=== PATIENT | female | born 1940 | race African-American/Black ===

== ENCOUNTER 2017-08-12 12:01 | Emergency (ER) | payer MEDICARE, OTHER ==
[~2017-08-12] VITALS: Ht 177.8 cm; Wt 110.2 kg
[~2017-08-12 12:01] MED LIST: AMLODIPINE BESY10 MG PO; ASPIRIN EC81 MG PO; ATENOLOL25 MG ORAL; BACTRIM-DS1 EA ORAL; DYAZIDE 37.5-21 EACH PO; HYDROCHLOROTHIA25 MG ORAL; OYSCO 500+D TA1 EAC1 PO; SIMVASTATIN40 MG PO; SYNTHROID150 MCG PO
[2017-08-12] MEDS ORDERED: CARVEDILOL3.125 MG ORAL (12:17)
[2017-08-12] MEDS ORDERED: CHLORTHALIDONE25 MG ORAL (12:17)
[2017-08-12] MEDS ORDERED: ATORVASTATIN CA20 MG ORAL (12:17)
[2017-08-12] MEDS ORDERED: AMLODIPINE BESY10 MG ORAL (12:17)
[2017-08-12] MEDS ORDERED: VITAMIN D400 INTLU ORAL (12:17)
[2017-08-12] MEDS ORDERED: OYSCO 500+D TA1 EAC1 PO (12:17)
[2017-08-12] MEDS ORDERED: LEVOTHYROXINE150 MCG ORAL (12:17)
[2017-08-12 12:38] LABS: APPEARANCE,URINE CLEAR; BILIRUBIN, URINE NEGATIVE (NEGATIVE); GLUCOSE, URINE (UA) NEGATIVE (NEGATIVE); KETONES,URINE NEGATIVE (NEGATIVE); LEUKOCYTE ESTERASE ,URINE 1+ (NEGATIVE); NITRITE,URINE NEGATIVE (NEGATIVE); PH,URINE 7 (4.5-8.0); PROTEIN,URINE 1+ (NEGATIVE); UROBILINOGEN,URINE NORMAL MG/DL (0.0-1.0)
[2017-08-12 12:39] VITALS: BP 184/89
[2017-08-12 12:39] LABS: COLOR,URINE YELLOW
--- NOTE | 2017-08-12 12:45 | Emergency Room Report ---
History of Present Illness General Chief Complaint: Female Urogenital Problems Source: Patient Present Illness HPI 77-year-old female, presenting with many months of urinary frequency. Denies any dysuria. Denies any hematuria. Patient states that she has seen her doctor many times, but did perform tasks, but states that she is okay. Patient denies any fever chills abdominal pain. Allergies: Coded Allergies: No Known Allergies (Unverified , 07/06/12) Patient History Past Medical History: see triage record Past Surgical History: none Pertinent Family History: none Last Menstrual Period: Post Reviewed Nursing Documentation: PMH: Agreed, PSxH: Agreed Nursing Documentation-PMH Hx Hypertension: Yes Hx Pacemaker: No Hx Asthma: No Hx COPD: No Hx Diabetes: No - bordeline Hx Cancer: No Hx Dialysis: No Hx Neurological Problems: No Hx Cerebrovascular Accident: No Hx Seizures: No Hx Head Trauma: Yes - Hx Dizziness: Yes - rasing up suddenly Review of Systems All Other Systems: negative except mentioned in HPI Physical Exam Vital Signs Date Time Temp Pulse Resp B/P (MAP) Pulse Ox O2 Delivery O2 Flow Rate FiO2 08/12/17 12:07 98.7 78 17 184/89 98 Room Air 98.8 Sp02 EP Interpretation: reviewed, normal General Appearance: normal inspection, well appearing, no apparent distress, alert, GCS 15, non-toxic Head: normocephalic, atraumatic Eyes: bilateral eye normal inspection, bilateral eye PERRL, bilateral eye EOMI ENT: normal ENT inspection, normal pharynx, normal voice, moist mucus membranes Neck: normal inspection, full range of motion, supple Respiratory: normal inspection, lungs clear, normal breath sounds, no respiratory distress, no retraction, no wheezing, speaking full sentences, chest symmetrical Cardiovascular #1: normal inspection, regular rate, rhythm, no edema, normal capillary refill Cardiovascular #2: 2+ radial (R), 2+ radial (L) Gastrointestinal: normal inspection, non tender, soft, non-distended, no guarding Musculoskeletal: normal inspection, back normal, normal range of motion, non- tender Neurologic: normal inspection, alert, oriented x3, responsive, motor strength/ tone normal, sensory intact, normal gait, speech normal Psychiatric: normal inspection, judgement/insight normal, memory normal Skin: normal inspection, normal color, no rash, warm/dry, well hydrated, normal turgor Medical Decision Making Diagnostic Impression: Primary Impression: Urinary frequency ER Course 77-year-old female with urinary frequency DDX: Rule out UTI versus diabetes Plan: Accu-Chek, UA ER course: Patient has remained stable during ED stay. UA is negative for infection accucheck normal Disposition: Patient is to be discharged to home. Patient is instructed to follow up with their primary care doctor within 5 days. Please note that this Emergency Department Report was dictated using [employer] art technology software, occasionally this can lead to erroneous entry secondary to interpretation by the dictation equipment Laboratory Tests Test 08/12/17 12:15 Urine Color Yellow Urine Appearance Clear Urine pH 7 (4.5-8.0) Urine Specific [place] 1.005 (1.005-1.035) Urine Protein 1+ (NEGATIVE) H Urine Glucose (UA) Negative (NEGATIVE) Urine Ketones Negative (NEGATIVE) Urine Occult Blood Negative (NEGATIVE) Urine Nitrite Negative (NEGATIVE) Urine Bilirubin Negative (NEGATIVE) Urine Urobilinogen Normal MG/DL (0.0-1.0) Urine Leukocyte Esterase 1+ (NEGATIVE) H Urine RBC 0-2 /HPF (0 - 2) Urine WBC 2-4 /HPF (0 - 2) Urine Squamous Epithelial Cells Few /LPF (NONE/OCC) Urine Bacteria Occasional /HPF (NONE) Last Vital Signs Date Time Temp Pulse Resp B/P (MAP) Pulse Ox O2 Delivery O2 Flow Rate FiO2 08/12/17 12:39 98.8 17 184/89 98 Room Air 98.8 08/12/17 12:07 78 Disposition: HOME, SELF-CARE Condition: Improved Patient Instructions: Urinary Frequency Anabel Marcos M.D. Aug 12, 2017 12:45
[2017-08-12 13:23] VITALS: BP 184/89
== END 2017-08-12 13:24 | disposition home or self-care (01) ==
LOC: EMR 12:50
DX: R35.0 Frequency of micturition (principal); I10 Essential (primary) hypertension
CPT/HCPCS: 81003; 99282

== ENCOUNTER 2018-02-13 10:34 | Inpatient (IN) | payer MEDICARE, OTHER ==
[~2018-02-13] VITALS: Ht 162.6 cm; Wt 126.1 kg
[~2018-02-13 10:34] MED LIST changes: +AMLODIPINE BESY10 MG ORAL; +ATORVASTATIN CA20 MG ORAL; +CARVEDILOL3.125 MG ORAL; +CHLORTHALIDONE25 MG ORAL; +LEVOTHYROXINE150 MCG ORAL; +VITAMIN D400 INTLU ORAL
[2018-02-13] MEDS ORDERED: ASPIR 8181 MG ORAL (10:56)
[2018-02-13] MEDS ORDERED: OMEGA 3 FISH O1 EAC1 PO (10:56)
[2018-02-13] MEDS ORDERED: Sodium Chloride 500ML 500 ML IV ONE (11:05)
[2018-02-13 11:11] VITALS: BP 156/75
--- NOTE | 2018-02-13 11:30 | Emergency Room Report ---
History of Present Illness General Chief Complaint: Dizziness Source: Patient Present Illness HPI Patient presents with complaints of severe dizziness reports that several days ago she started having episodes when she was laying down in bed More recently became extremely nauseated with this episode vomited Patient feels debilitated Denies any focal weakness however she did have some right lower back pain associated before the symptoms as well Denies any dysuria or frequency denies any fevers Denies any chest pain or short of breath Allergies: Coded Allergies: No Known Allergies (Unverified , 07/06/12) Patient History Past Medical History: see triage record Pertinent Family History: none Reviewed Nursing Documentation: PMH: Agreed; PSxH: Agreed Nursing Documentation-PMH Past Medical History: No History, Except For Hx Hypertension: Yes Hx Pacemaker: No Hx Asthma: No Hx COPD: No Hx Diabetes: Yes - bordeline Hx Cancer: No Hx Dialysis: No History Of Psychiatric Problem: No Hx Neurological Problems: No Hx Cerebrovascular Accident: No Hx Seizures: No Hx Head Trauma: Yes - Hx Dizziness: Yes - rasing up suddenly Review of Systems All Other Systems: negative except mentioned in HPI Physical Exam Vital Signs Date Time Temp Pulse Resp B/P (MAP) Pulse Ox O2 Delivery O2 Flow Rate FiO2 02/13/18 10:50 97.9 61 14 166/92 96 Room Air 97.9 Sp02 EP Interpretation: reviewed, normal General Appearance: mild distress - Appears mildly nauseated Head: normocephalic, atraumatic Eyes: bilateral eye PERRL, bilateral eye EOMI ENT: hearing grossly normal, normal pharynx, TMs + canals normal, uvula midline Neck: full range of motion, supple, no meningismus, no bony tend, other - Appearance of previous clavicle surgery Respiratory: lungs clear, normal breath sounds, no rhonchi, no respiratory distress, no retraction, no accessory muscle use Cardiovascular #1: normal peripheral pulses, regular rate, rhythm, no edema, no gallop, no JVD, no murmur Gastrointestinal: normal bowel sounds, non tender, soft, no mass, no organomegaly, non-distended, no guarding, no hernia, no pulsatile mass, no rebound Genitourinary: no CVA tenderness Musculoskeletal: other - No obvious focal weakness, uncomfortable on right posterior superior iliac crest Neurologic: oriented x3, responsive, feed mixer III-XII nml as tested, motor strength/ tone normal, sensory intact Psychiatric: mood/affect normal Skin: normal color, no rash, warm/dry, palpation normal Lymphatic: normal inspection, no adenopathy Medical Decision Making Diagnostic Impression: Primary Impression: Dizziness Additional Impressions: Back pain Weakness ER Course Patient is a fairly complex patient with multiple differential to consideration including but not limited to cardiac cardiopulmonary and vascular emergencies Patient's initial workup and evaluation was negative for any acute process Given the patient's dizziness CVA needs to be considered Admission is obtained for further care Also imaging inpatient for lower back is also obtained no obvious acute pathology patient stable for further inpatient care Labs Test 02/14/18 05:30 02/15/18 05:05 02/16/18 05:40 White Blood Count 5.6 K/UL (4.8-10.8) 5.4 K/UL (4.8-10.8) Red Blood Count 6.05 M/UL (4.20-5.40) 5.97 M/UL (4.20-5.40) Hemoglobin 13.6 G/DL (12.0-16.0) 13.5 G/DL (12.0-16.0) Hematocrit 43.3 % (37.0-47.0) 42.6 % (37.0-47.0) Mean Corpuscular Volume 72 FL (80-99) 71 FL (80-99) Mean Corpuscular Hemoglobin 22.4 PG (27.0-31.0) 22.7 PG (27.0-31.0) Mean Corpuscular Hemoglobin Concent 31.3 G/DL (32.0-36.0) 31.8 G/DL (32.0-36.0) Red Cell Distribution Width 13.2 % (11.6-14.8) 13.0 % (11.6-14.8) Platelet Count 227 K/UL (150-450) 215 K/UL (150-450) Mean Platelet Volume 8.6 FL (6.5-10.1) 7.9 FL (6.5-10.1) Neutrophils (%) (Auto) 66.0 % (45.0-75.0) 65.6 % (45.0-75.0) Lymphocytes (%) (Auto) 19.4 % (20.0-45.0) 19.9 % (20.0-45.0) Monocytes (%) (Auto) 10.3 % (1.0-10.0) 10.5 % (1.0-10.0) Eosinophils (%) (Auto) 3.3 % (0.0-3.0) 3.3 % (0.0-3.0) Basophils (%) (Auto) 1.0 % (0.0-2.0) 0.7 % (0.0-2.0) Sodium Level 144 MMOL/L (136-145) 139 MMOL/L (136-145) Potassium Level 3.7 MMOL/L (3.5-5.1) 3.3 MMOL/L (3.5-5.1) Chloride Level 106 MMOL/L (98-107) 105 MMOL/L (98-107) Carbon Dioxide Level 29 MMOL/L (21-32) 29 MMOL/L (21-32) Anion Gap 9 mmol/L (5-15) 5 mmol/L (5-15) Blood Urea Nitrogen 18 mg/dL (7-18) 17 mg/dL (7-18) Creatinine 0.8 MG/DL (0.55-1.30) 0.7 MG/DL (0.55-1.30) Estimat Glomerular Filtration Rate mL/min (>60) mL/min (>60) Glucose Level 95 MG/DL (74-106) 113 MG/DL (74-106) Calcium Level 8.7 MG/DL (8.5-10.1) 8.9 MG/DL (8.5-10.1) Troponin I 0.001 ng/mL (0.000-0.056) Triglycerides Level 59 MG/DL (30-150) Cholesterol Level 160 MG/DL (< 200) LDL Cholesterol 82 mg/dL (<100) HDL Cholesterol 71 MG/DL (40-60) Cholesterol/HDL Ratio 2.3 (3.3-4.4) Thyroid Stimulating Hormone (TSH) 1.646 uiU/mL (0.358-3.740) Rhythm Strip Diag. 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
[2018-02-13 11:36] LABS: APPEARANCE,URINE CLEAR; BASOPHILS % (AUTO) 1.1 % (0.0-2.0); BILIRUBIN, URINE NEGATIVE (NEGATIVE); EOSINOPHILS % (AUTO) 1.8 % (0.0-3.0); GLUCOSE, URINE (UA) NEGATIVE (NEGATIVE); HEMATOCRIT 47.1 % (37.0-47.0); HEMOGLOBIN 14.6 G/DL (12.0-16.0); KETONES,URINE NEGATIVE (NEGATIVE); LEUKOCYTE ESTERASE ,URINE 2+ (NEGATIVE); LYMPHOCYTES % (AUTO) 20.2 % (20.0-45.0); MEAN CORPUSCULAR VOLUME 71 FL (80-99); MONOCYTES % (AUTO) 8.4 % (1.0-10.0); NEUTROPHILS % (AUTO) 68.6 % (45.0-75.0); NITRITE,URINE NEGATIVE (NEGATIVE); PH,URINE 6 (4.5-8.0); PLATELET COUNT 238 K/UL (150-450); PROTEIN,URINE 1+ (NEGATIVE); RED CELL DISTRIBUTION WIDTH 13.4 % (11.6-14.8); UROBILINOGEN,URINE NORMAL MG/DL (0.0-1.0); WHITE BLOOD COUNT 6.3 K/UL (4.8-10.8)
[2018-02-13 11:40] LABS: COLOR,URINE YELLOW
[2018-02-13 11:44] LABS: ANION GAP 7 mmol/L (5-15); BLOOD UREA NITROGEN 13 mg/dL (7-18); CARBON DIOXIDE 27 MMOL/L (21-32); CHLORIDE 105 MMOL/L (98-107); CREATININE 0.7 MG/DL (0.55-1.30); POTASSIUM 3.6 MMOL/L (3.5-5.1); SODIUM 139 MMOL/L (136-145)
--- NOTE | 2018-02-13 11:55 | Diagnostic Imaging Report ---
Indication: Vertigo nausea Technique: Contiguous 5 mm thick transaxial imaging of the head obtained in a Siemens Sensation [address] scanner. Soft tissue and bone windows generated. Automatic Exposure Control was utilized. Total Dose length Product (DLP): 1372.[address] Dose Index Volume (CTDIvol): 70.38 mGy Comparison: none Findings: Mild, nonspecific, white matter hypoattenuation is noted throughout the brain most likely secondary to chronic small vessel disease given the patient's age. There is no midline shift, edema, acute hemorrhage, mass effect, or abnormal extra-axial fluid collections. Bones and extra osseous soft tissues are unremarkable. Impression: No acute intracranial bleed, mass effect or edema. Nonspecific white matter hypoattenuation most likely due to chronic small vessel disease. The CT scanner at [facility] is accredited by the [employer] and the scans are performed using dose optimization techniques as appropriate to a performed exam including Automatic Exposure control.
[2018-02-13 11:57] LABS: ALANINE AMINOTRANSFERASE 24 U/L (12-78); ALBUMIN 3.6 G/DL (3.4-5.0); ALBUMIN/GLOBULIN RATIO 0.9 (1.0-2.7); ALKALINE PHOSPHATASE 115 U/L (46-116); ASPARTATE AMINO TRANSFERASE 31 U/L (15-37); BILIRUBIN,TOTAL 0.6 MG/DL (0.2-1.0); CKMB 1.1 NG/ML (0.0-3.6); CREATINE KINASE 177 U/L (26-308)
--- NOTE | 2018-02-13 12:14 | Diagnostic Imaging Report ---
Indication: Chest pain Comparison: 06/10/2016 A single view chest radiograph was obtained. Findings: No definite infiltrate or pulmonary vascular congestion identified. The heart is enlarged. The aorta is mildly enlarged consistent with atherosclerotic vascular disease. The bones are osteopenic. Impression: No acute disease
[2018-02-13 12:35] VITALS: BP 142/74
[2018-02-13] MEDS ORDERED: Meclizine 25mg tab ORAL ONE (13:30)
[2018-02-13 15:45] VITALS: BP 132/84
--- NOTE | 2018-02-13 16:30 | Diagnostic Imaging Report ---
Indication: Back pain Technique: MRI examination of the lumbar spine was performed in a 1.5 [place] magnet. Sequences obtained include sagittal and axial T1 and T2 fast spin echo, and sagittal STIR. Comparison: none Findings: Bone marrow signal normal. There is no fracture or evidence of trauma involving the lumbar spine. Disc desiccation and narrowing of the intervertebral discs noted multiple levels. This is associated with moderate hypertrophic endplate osteophyte formation and moderate facet arthropathy at multiple levels. The effects of these changes in the spinal canal and foraminal be discussed on a level by level basis. The visualized part of the distal spinal cord is normal. Conus medullaris is seen at about the level of L1 which is normal position. L1-2: Moderate facet arthropathy demonstrated. Narrowing of the central canal lateral recess demonstrated. Mild to moderate bilateral foraminal stenosis. L2-3: Moderate to severe central spinal stenosis demonstrated with narrowing of the lateral recess. Moderate facet arthropathy and ligamentum flavum redundancy and the moderate bilateral foraminal stenosis demonstrated. L3-4: Central spinal stenosis mild in degree, lateral recess stenosis demonstrated. Moderate to severe bilateral foraminal stenosis demonstrated. L4-5: Narrowing of the lateral aspect of the canal lateral recess stenosis demonstrated due to facet arthropathy. Severe bilateral foraminal stenosis is present. The central AP diameter of the canal is normal. 5 S1: Central AP diameter of the canal is normal. There is narrowing of the lateral aspect of the canal and lateral recess stenosis. There is severe bilateral foraminal stenosis due to facet arthropathy. 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
--- NOTE | 2018-02-13 16:48 | Diagnostic Imaging Report ---
Indication: Hip and pelvis pain Technique: MRI examination of the pelvis was performed in a 1.5 [place] magnet. Sequences obtained include multiplanar T1 and T2 fast spin echo, and STIR. Comparison: none Findings: Bone marrow signal is normal. There is no evidence of bone marrow edema or fracture involving the bony pelvis including the sacrum and hips. The hip joints and the more specific evaluation of the hips not performed on this examination which is done in a generalized fashion of the pelvis. No abnormal fluid collections identified. The musculotendinous structures appear grossly unremarkable about the pelvis and both hips. The uterus is noted. There is no free fluid within the pelvis identified. Degenerative changes of the lower lumbar spine are noted. Please refer to the MR lumbar spine report for more information. IMPRESSION: No acute findings appreciated
[2018-02-13 20:00] VITALS: BP 171/71
[2018-02-13] MEDS ORDERED: Zolpidem 5mg tab ORAL PRN (20:15)
--- NOTE | 2018-02-13 22:30 | History and Physical Report ---
DATE OF ADMISSION: 02/13/2018 CHIEF COMPLAINT: The patient is a 77-year-old female, who presents with chief complaint of dizziness. HISTORY OF PRESENT ILLNESS: Began one week prior to admission. The patient states she began to experience dizziness. The patient states it is worse when she is lying flat or changes her head position to the left. The patient is unable to sleep lying flat. The patient states "the room is spinning". The patient presented to [place] emergency room. The patient is admitted with vertigo to rule out acute cerebrovascular accident versus benign positional vertigo. PAST MEDICAL HISTORY: Significant for: 1. Hypertension. 2. Hypothyroidism. PAST SURGICAL HISTORY: The patient denies. CURRENT MEDICATIONS: 1. Amlodipine 10 mg p.o. daily. 2. Aspirin 81 mg p.o. daily. 3. Atorvastatin 20 mg p.o. daily. 4. Carvedilol 3.125 mg p.o. twice daily. 5. Chlorthalidone 25 mg p.o. daily. 6. Levoxyl 0.15 mg p.o. daily. ALLERGIES: No known drug allergies. SOCIAL HISTORY: The patient is and lives alone. The patient denies tobacco or alcohol use. REVIEW OF SYSTEMS: CONSTITUTIONAL: The patient denies weight loss or weight gain. The patient denies fevers or chills. HEENT: The patient denies ear or throat pain. The patient denies headache. CARDIOVASCULAR: The patient denies palpitations or chest pain. CHEST: The patient denies wheezes or shortness of breath. ABDOMEN: The patient denies nausea, vomiting, diarrhea, or constipation. GENITOURINARY: The patient denies dysuria or increased frequency of urination. NEUROMUSCULAR: The patient complaints of vertigo as above. The patient denies seizures or generalized weakness. PHYSICAL EXAMINATION: GENERAL: The patient is a well-developed and well-nourished female, in no apparent distress. VITAL SIGNS: Temperature 98.0 degrees, respirations 18, pulse 84, and blood pressure 142/74. HEENT: Eyes, pupils equal and responsive to light and accommodation. Extraocular movements are intact. NECK: Supple without lymphadenopathy. CHEST: Lungs are clear to auscultation bilaterally without wheezes or rales. CARDIOVASCULAR: Regular rate. S1 and S2 are normal without murmurs, rubs, or gallops. ABDOMEN: Soft, nontender, and nondistended. Positive bowel sounds. No evidence of hepatosplenomegaly. Currently, no rebound or guarding noted. EXTREMITIES: Negative for clubbing, cyanosis, or edema. RECTAL: Refused. GENITAL: Refused. NEUROLOGIC: Cranial nerves II through XII are grossly intact without focal deficits. Motor strength is 5/5 bilaterally. Deep tendon reflexes are 2+ plantar. LABORATORY AND DIAGNOSTIC DATA: WBC 6.3, hemoglobin 14.6, hematocrit 47.1, and platelets 238,000. Sodium 139, potassium 3.6, chloride 105, CO2 27, BUN 13, creatinine 0.7, and glucose 132. Troponin 0.017. A CT of the was reported as no acute hemorrhage or infarct. A chest x-ray was reported as no acute disease. An MRI of the pelvis revealed no acute fracture. An MRI of the lumbar spine revealed chronic degenerative disease of the lumbar spine. ASSESSMENT: This is a 77-year-old female with: 1. Vertigo. 2. Hypertension. 3. Hypothyroidism. 4. Hypercholesterolemia. 5. Spondylosis of the lumbar spine. TREATMENT: 1. Vertigo. A Neurology consultation has been obtained with Dr. Cedrick Kasper. An MRI of the brain is pending. Carotid duplex and Dopplers are pending. This may be benign positional vertigo versus some tumor versus inner ear etiology. We will follow recommendations of Neurology. 2. Hypothyroidism. Continue Levoxyl as above. 3. Hypercholesteremia. Continue Lipitor as above. 4. Spondylosis of lumbar spine. Car Sifuentes M.D. DR: RADHA JOB#: [id number] CC:
[2018-02-13] MEDS: Heparin 5000 units/ml inj SUBQ SCH (22:55)
--- NOTE | 2018-02-13 22:55 | Diagnostic Imaging Report ---
EXAM: US Retroperitoneal Limited, Renal CLINICAL HISTORY: PAIN TECHNIQUE: Real-time ultrasound of the retroperitoneum (limited) with image documentation. COMPARISON: No relevant prior studies available. FINDINGS: Right kidney: The right kidney measures 10.5 cm in length. It demonstrates a punctate non-shadowing echogenic focus which is probably a focus of fat. Alternatively this could represent a nonobstructing calculus. Left kidney: The left kidney measures 11.5 cm in length and is unremarkable. No stones. No hydronephrosis. Bladder: Both ureteral jets are visualized in the bladder by color Doppler. Urinary bladder volume is 129 cc. IMPRESSION: No hydronephrosis. Punctate focus of fat versus nonobstructing calculus in the right kidney.
[2018-02-14] VITALS: BP 115/59
[2018-02-14 04:00] VITALS: BP 130/54
[2018-02-14] MEDS: Meclizine 25mg tab ORAL PRN ×2 (06:51→15:46)
[2018-02-14 07:21] LABS: EOSINOPHILS % (AUTO) 3.3 % (0.0-3.0); HEMATOCRIT 43.3 % (37.0-47.0); HEMOGLOBIN 13.6 G/DL (12.0-16.0); LYMPHOCYTES % (AUTO) 19.4 % (20.0-45.0); MEAN CORPUSCULAR VOLUME 72 FL (80-99); MONOCYTES % (AUTO) 10.3 % (1.0-10.0); PLATELET COUNT 227 K/UL (150-450); RED BLOOD COUNT 6.05 M/UL (4.20-5.40); RED CELL DISTRIBUTION WIDTH 13.2 % (11.6-14.8); WHITE BLOOD COUNT 5.6 K/UL (4.8-10.8)
[2018-02-14 07:33] LABS: ANION GAP 9 mmol/L (5-15); BLOOD UREA NITROGEN 18 mg/dL (7-18); CALCIUM 8.7 MG/DL (8.5-10.1); CARBON DIOXIDE 29 MMOL/L (21-32); CHLORIDE 106 MMOL/L (98-107); CREATININE 0.8 MG/DL (0.55-1.30); POTASSIUM 3.7 MMOL/L (3.5-5.1); SODIUM 144 MMOL/L (136-145)
[2018-02-14 08:00] VITALS: BP 142/75
[2018-02-14] MEDS: Aspirin EC 81mg tab ORAL SCH (08:28)
[2018-02-14] MEDS: Atorvastatin 20mg tab ORAL SCH (08:28)
[2018-02-14] MEDS: Heparin 5000 units/ml inj SUBQ SCH ×2 (08:32→20:35)
[2018-02-14 12:00] VITALS: BP 140/79
[2018-02-14 16:00] VITALS: BP 132/76
--- NOTE | 2018-02-14 16:59 | Cardiac Electrophysiology PN ---
Subjective Subjective [id number] Objective Last 24 Hour Vital Signs Date Time Temp Pulse Resp B/P (MAP) Pulse Ox O2 Delivery O2 Flow Rate FiO2 02/14/18 16:00 70 02/14/18 16:00 97.0 63 20 132/76 (94) 97 97.0 02/14/18 12:00 97.6 67 20 140/79 (99) 96 97.6 02/14/18 12:00 75 02/14/18 09:00 Room Air 02/14/18 08:29 75 142/75 02/14/18 08:29 75 142/75 02/14/18 08:00 98.2 75 20 142/75 (97) 95 98.2 02/14/18 08:00 67 02/14/18 04:00 57 02/14/18 04:00 97.5 62 20 130/54 (79) 92 97.5 02/14/18 00:00 75 02/14/18 00:00 97.5 62 20 115/59 (77) 96 97.5 02/13/18 22:54 79 171/71 02/13/18 21:00 Room Air 02/13/18 20:00 97.7 79 19 171/71 (104) 97 97.7 02/13/18 20:00 78 02/13/18 17:51 Room Air 02/13/18 17:00 88 Intake and Output 02/13/18 02/14/18 19:00 07:00 Intake Total 240 ml Balance 240 ml Intake Oral 240 ml # Voids 2 2 # Bowel Movements 2 Laboratory Tests Test 02/14/18 05:30 White Blood Count 5.6 K/UL (4.8-10.8) Red Blood Count 6.05 M/UL (4.20-5.40) H Hemoglobin 13.6 G/DL (12.0-16.0) Hematocrit 43.3 % (37.0-47.0) Mean Corpuscular Volume 72 FL (80-99) L Mean Corpuscular Hemoglobin 22.4 PG (27.0-31.0) L Mean Corpuscular Hemoglobin Concent 31.3 G/DL (32.0-36.0) L Red Cell Distribution Width 13.2 % (11.6-14.8) Platelet Count 227 K/UL (150-450) Mean Platelet Volume 8.6 FL (6.5-10.1) Neutrophils (%) (Auto) 66.0 % (45.0-75.0) Lymphocytes (%) (Auto) 19.4 % (20.0-45.0) L Monocytes (%) (Auto) 10.3 % (1.0-10.0) H Eosinophils (%) (Auto) 3.3 % (0.0-3.0) H Basophils (%) (Auto) 1.0 % (0.0-2.0) Sodium Level 144 MMOL/L (136-145) Potassium Level 3.7 MMOL/L (3.5-5.1) Chloride Level 106 MMOL/L (98-107) Carbon Dioxide Level 29 MMOL/L (21-32) Anion Gap 9 mmol/L (5-15) Blood Urea Nitrogen 18 mg/dL (7-18) Creatinine 0.8 MG/DL (0.55-1.30) Estimat Glomerular Filtration Rate mL/min (>60) Glucose Level 95 MG/DL (74-106) Calcium Level 8.7 MG/DL (8.5-10.1) Ra Giordano MD Feb 14, 2018 16:59
--- NOTE | 2018-02-14 18:15 | Consultation ---
DATE OF CONSULTATION: 02/14/2018 CARDIOLOGY CONSULTATION CONSULTING PHYSICIAN: Ra Giordano M.D. REFERRING PHYSICIAN: Car Sifuentes M.D. REASON FOR CONSULTATION: Bradycardia and dizziness. HISTORY OF PRESENT ILLNESS: The patient is a 77-year-old lady with history of palpitation and tachycardia in the past, as well as hypertension, was brought to the emergency room for episodes of dizziness. The patient did not have syncope and denies any prior myocardial infarction or congestive heart failure. She felt the room was spinning. The patient was admitted and a Cardiology consultation was obtained for further evaluation and management. PAST MEDICAL HISTORY: Includes history includes, 1. Hypertension. 2. Hypothyroidism. 3. History of palpitation. MEDICATION AT HOME: Include Norvasc 10, aspirin 81, Lipitor 20, Coreg 3.125 b.i.d., chlorthalidone 25 daily, and Levoxyl 0.15 mg daily. ALLERGIES: She has no known drug allergies. SOCIAL HISTORY: She is and lives alone. Does not smoke or drink alcohol. PHYSICAL EXAMINATION: VITAL SIGNS: Blood pressure is 132/76, pulse is 76, respirations 18, and she is afebrile. HEAD AND NECK: Showed no JVD. LUNGS: Clear. CARDIOVASCULAR: Regular S1 and S2 with no gallop or murmur. ABDOMEN: Soft. EXTREMITIES: No pitting edema. DIAGNOSTIC DATA: Her telemetry strip showed episodes of bradycardia. Heart rate dropped to 41 beats per minute. Telemetry strips also showed blocked PACs. LABORATORY DATA: Labs show white count of 5.6, hemoglobin 13, hematocrit of 43, and platelet count is 227,000. Sodium 145, potassium 3.7, BUN of 18, and creatinine 0.8. Troponin is negative. ASSESSMENT AND PLAN: 1. Episodes of bradycardia. The patient is on low-dose Coreg and these episodes are transient. I would continue Coreg and echocardiogram and check thyroid function test. If she continues to become bradycardic while awake, we will discontinue Coreg. However, it is of note that the patient has history of tachycardia and maybe that is why she was kept on beta-celine. 2. History of hypertension. On Coreg and Norvasc 10 mg daily. 3. Hyperlipidemia. On Lipitor. 4. Hypothyroidism. On Synthroid. 5. Vertigo. On Antivert. MRI of brain is also pending. Thank you very much, Dr. Sifuentes for allowing me to participate in the care of this patient. Please do not hesitate to contact me for any questions regarding my evaluation. Ra Giordano M.D. DR: AIDE JOB#: [id number] CC:
--- NOTE | 2018-02-14 18:15 | Internal Med Progress Note ---
Subjective Date of Service: Feb 14, 2018 Physician Name Car Sifuentes Attending Physician Car Sifuentes MD Current Medications Medications (Trade) Dose Ordered Sig/Deric Route PRN Reason Start Time Stop Time Status Last Admin Dose Admin Acetaminophen (Tylenol) 650 mg Q4H PRN ORAL Mild Pain (Pain Scale 1-3) 02/13/18 20:15 03/15/18 20:14 Acetaminophen (Tylenol) 650 mg Q4H PRN ORAL fever 02/13/18 20:15 03/15/18 20:14 Amlodipine Besylate (Norvasc) 10 mg DAILY ORAL 02/14/18 09:00 03/16/18 08:59 02/14/18 08:29 Aspirin (Ecotrin) 81 mg DAILY ORAL 02/14/18 09:00 03/16/18 08:59 02/14/18 08:28 Atorvastatin Calcium (Lipitor) 20 mg DAILY ORAL 02/14/18 09:00 03/16/18 08:59 02/14/18 08:28 Carvedilol (Coreg) 3.125 mg EVERY 12 HOURS ORAL 02/13/18 21:00 03/15/18 20:59 02/14/18 08:29 Chlorthalidone (Chlorthalidone) 25 mg DAILY ORAL 02/14/18 09:00 03/16/18 08:59 02/14/18 08:28 Dextrose (Dextrose 50%) 25 ml STAT PRN IV Hypoglycemia 02/13/18 20:15 03/15/18 20:14 Dextrose (Dextrose 50%) 50 ml STAT PRN IV Hypoglycemia 02/13/18 20:15 03/15/18 20:14 Heparin Sodium (Porcine) (Heparin 5000 units/ml) 5,000 units EVERY 12 HOURS SUBQ 02/13/18 21:00 03/15/18 20:59 02/14/18 08:32 Levothyroxine Sodium (Synthroid) 150 mcg Q24H ORAL 02/14/18 06:30 03/16/18 06:29 02/14/18 06:41 Meclizine HCl (Antivert) 25 mg Q6H PRN ORAL for dizziness 02/13/18 20:15 03/15/18 20:14 02/14/18 15:46 Ondansetron HCl (Zofran) 4 mg Q6H PRN IVP Nausea & Vomiting 02/13/18 20:15 03/15/18 20:14 Zolpidem Tartrate (Ambien) 5 mg DAILYPRN PRN ORAL Insomnia 02/13/18 20:15 02/20/18 20:14 Allergies: Coded Allergies: No Known Allergies (Unverified , 07/06/12) ROS Limited/Unobtainable: No Constitutional: Reports: no symptoms HEENT: Reports: no symptoms Cardiovascular: Reports: no symptoms Respiratory: Reports: no symptoms Gastrointestinal/Abdominal: Reports: no symptoms Genitourinary: Reports: no symptoms Neurologic/Psychiatric: Reports: other - dizzy Subjective 77 YO F admitted with vertigo. Now pauses on tele. Cover for Int Med-Dr Vela. Await MRI brain and carotid duplex doppler Objective Last Vital Signs Date Time Temp Pulse Resp B/P (MAP) Pulse Ox O2 Delivery O2 Flow Rate FiO2 02/14/18 16:00 70 02/14/18 16:00 97.0 20 132/76 (94) 97 97.0 02/14/18 09:00 Room Air General Appearance: WD/WN, no apparent distress, alert EENT: PERRL/EOMI, normal ENT inspection Neck: non-tender, normal alignment, supple, normal inspection Cardiovascular: normal peripheral pulses, normal rate, regular rhythm, no gallop/murmur, no JVD Respiratory/Chest: chest wall non-tender, lungs clear, normal breath sounds, no respiratory distress, no accessory muscle use Abdomen: normal bowel sounds, non tender, soft, no organomegaly, no mass Extremities: normal range of motion, non-tender 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, no motor/sensory deficits, other - dizzy Skin: normal pigmentation, warm/dry Laboratory Tests Test 02/14/18 05:30 White Blood Count 5.6 K/UL (4.8-10.8) Red Blood Count 6.05 M/UL (4.20-5.40) H Hemoglobin 13.6 G/DL (12.0-16.0) Hematocrit 43.3 % (37.0-47.0) Mean Corpuscular Volume 72 FL (80-99) L Mean Corpuscular Hemoglobin 22.4 PG (27.0-31.0) L Mean Corpuscular Hemoglobin Concent 31.3 G/DL (32.0-36.0) L Red Cell Distribution Width 13.2 % (11.6-14.8) Platelet Count 227 K/UL (150-450) Mean Platelet Volume 8.6 FL (6.5-10.1) Neutrophils (%) (Auto) 66.0 % (45.0-75.0) Lymphocytes (%) (Auto) 19.4 % (20.0-45.0) L Monocytes (%) (Auto) 10.3 % (1.0-10.0) H Eosinophils (%) (Auto) 3.3 % (0.0-3.0) H Basophils (%) (Auto) 1.0 % (0.0-2.0) Sodium Level 144 MMOL/L (136-145) Potassium Level 3.7 MMOL/L (3.5-5.1) Chloride Level 106 MMOL/L (98-107) Carbon Dioxide Level 29 MMOL/L (21-32) Anion Gap 9 mmol/L (5-15) Blood Urea Nitrogen 18 mg/dL (7-18) Creatinine 0.8 MG/DL (0.55-1.30) Estimat Glomerular Filtration Rate mL/min (>60) Glucose Level 95 MG/DL (74-106) Calcium Level 8.7 MG/DL (8.5-10.1) Intake and Output 02/13/18 02/14/18 19:00 07:00 Intake Total 240 ml Balance 240 ml Intake Oral 240 ml # Voids 2 2 # Bowel Movements 2 Assessment/Plan Problem List: (1) Hypothyroidism Assessment & Plan: Continue levoxyl (2) Hypercholesteremia Assessment & Plan: Continue lipitor (3) Spondylosis, lumbar, with myelopathy (4) Vertigo Assessment & Plan: ?neuro vs cardiac? 6 sec pause on tele-see cardiology note. Await MRI brain and carotid duplex doppler. await echocardiogram (5) Hypertension Assessment & Plan: Continue amlodipine and clorthalidone Status: not improved Car Sifuentes MD Feb 14, 2018 18:15
[2018-02-14 20:00] VITALS: BP 167/84
[2018-02-15] VITALS: BP 120/77
[2018-02-15 04:00] VITALS: BP 129/78
[2018-02-15] MEDS: Meclizine 25mg tab ORAL PRN ×2 (06:24→15:35)
[2018-02-15 08:00] VITALS: BP 138/72
[2018-02-15] MEDS: Atorvastatin 20mg tab ORAL SCH (08:07)
[2018-02-15] MEDS: Aspirin EC 81mg tab ORAL SCH (08:07)
[2018-02-15] MEDS: Heparin 5000 units/ml inj SUBQ SCH ×2 (08:11→21:13)
[2018-02-15 12:00] VITALS: BP 151/88
--- NOTE | 2018-02-15 12:09 | Consultation ---
History of Present Illness General Date patient seen: Feb 15, 2018 Time patient seen: 11:00 Chief Complaint: Dizziness Referring physician: Dr ABAD Reason for Consultation: VERTIGO Present Illness HPI 77 y/old female with PMH of HTN, hyperlipidemia, hypothyroidism, chronic low back pain, presented with c/o dizziness. She reported room was spinning around her. Symptoms denied loss of consciousness, blackouts No chest pain, no SOB Upon evaluation vital signs were stable CT head revealed no acute intracranial pathology UA no evidence of UTI ECG with SR no acute ischemic changes, troponin negative CXR no acute CP pathology labs stable Patient admitted with diagnosis of vertigo Allergies: Coded Allergies: No Known Allergies (Unverified , 07/06/12) Medication History Scheduled Amlodipine Besylate* (Amlodipine Besylate*), 10 MG ORAL DAILY, (Reported) Aspirin* (Aspir 81*), 81 MG ORAL DAILY, (Reported) Atorvastatin Calcium* (Atorvastatin Calcium*), 20 MG ORAL DAILY, (Reported) Calcium Carbonate/Vitamin D3 ([place] 500+D Tablet), 1 EACH PO BID, (Reported) Carvedilol* (Carvedilol*), 3.125 MG ORAL EVERY 12 HOURS, (Reported) Chlorthalidone* (Chlorthalidone*), 25 MG ORAL DAILY, (Reported) Levothyroxine Sodium* (Levothyroxine Sodium*), 150 MCG ORAL DAILY, (Reported) [place]-3 Fatty Acids/Fish Oil ([place] 3 Fish Oil Softgel), 1 EACH PO DAILY, ( Reported) Vitamin D (Vitamin D3), 1,000 UNITS ORAL DAILY, (Reported) Patient History History Provided By: Patient Healthcare decision maker Resuscitation status Advanced Directive on File Past Medical/Surgical History Past Medical/Surgical History: (1) Hypothyroidism (2) Hypercholesteremia (3) Spondylosis, lumbar, with myelopathy (4) Hypertension Review of Systems Constitutional: Reports: weakness Eye: Reports: no symptoms ENT: Reports: no symptoms Cardiovascular: Reports: no symptoms Gastrointestinal: Reports: constipation Genitourinary: Reports: no symptoms Musculoskeletal: Reports: back pain Skin: Reports: no symptoms Psychiatric: Reports: no symptoms Neurological: Reports: see HPI Endocrine: Reports: no symptoms Hematologic/Lymphatic: Reports: no symptoms Physical Exam General Appearance: no apparent distress, alert - awake and oriented x 4 AA female Lines, tubes and drains: peripheral HEENT: normocephalic, atraumatic, anicteric, mucous membranes moist, PERRL Neck: non-tender, supple, normal inspection Respiratory/Chest: lungs clear, no respiratory distress, no accessory muscle use Cardiovascular/Chest: normal peripheral pulses, normal rate, regular rhythm, no JVD Abdomen: normal bowel sounds, non tender, soft Extremities: normal range of motion, non-tender, no calf tenderness, normal capillary refill Skin Exam: normal pigmentation, warm/dry Neurologic: no motor/sensory deficits, alert, oriented x 3, responsive Musculoskeletal: normal muscle bulk Last 24 Hour Vital Signs Date Time Temp Pulse Resp B/P (MAP) Pulse Ox O2 Delivery O2 Flow Rate FiO2 02/15/18 09:00 73 73 87 02/15/18 09:00 Room Air 02/15/18 08:07 73 138/72 02/15/18 08:06 73 138/72 02/15/18 08:00 46 02/15/18 08:00 98.0 73 18 138/72 (94) 98 98.0 02/15/18 04:00 97.7 62 20 129/78 (95) 100 97.7 02/15/18 04:00 55 02/15/18 00:00 70 02/15/18 00:00 97.9 70 18 120/77 (91) 97 97.9 02/14/18 21:00 Room Air 02/14/18 20:32 73 167/84 02/14/18 20:00 98.2 76 20 167/84 (111) 97 98.2 02/14/18 20:00 84 02/14/18 16:00 70 02/14/18 16:00 97.0 63 20 132/76 (94) 97 97.0 02/14/18 12:00 97.6 67 20 140/79 (99) 96 97.6 02/14/18 12:00 75 Intake and Output 02/14/18 02/15/18 19:00 07:00 Intake Total 840 ml 100 ml Balance 840 ml 100 ml Intake Oral 840 ml 100 ml # Voids 5 # Bowel Movements 3 Laboratory Tests Test 02/15/18 05:05 Troponin I 0.001 ng/mL (0.000-0.056) Height (Feet): 5 Height (Inches): 4.00 Weight (Pounds): 240 Medications Current Medications Medications (Trade) Dose Ordered Sig/Deric Route PRN Reason Start Time Stop Time Status Last Admin Dose Admin Acetaminophen (Tylenol) 650 mg Q4H PRN ORAL Mild Pain (Pain Scale 1-3) 02/13/18 20:15 03/15/18 20:14 Acetaminophen (Tylenol) 650 mg Q4H PRN ORAL fever 02/13/18 20:15 03/15/18 20:14 Amlodipine Besylate (Norvasc) 10 mg DAILY ORAL 02/14/18 09:00 03/16/18 08:59 02/15/18 08:06 Aspirin (Ecotrin) 81 mg DAILY ORAL 02/14/18 09:00 03/16/18 08:59 02/15/18 08:07 Atorvastatin Calcium (Lipitor) 20 mg DAILY ORAL 02/14/18 09:00 03/16/18 08:59 02/15/18 08:07 Carvedilol (Coreg) 3.125 mg EVERY 12 HOURS ORAL 02/13/18 21:00 03/15/18 20:59 02/15/18 08:07 Chlorthalidone (Chlorthalidone) 25 mg DAILY ORAL 02/14/18 09:00 03/16/18 08:59 02/15/18 08:07 Dextrose (Dextrose 50%) 25 ml STAT PRN IV Hypoglycemia 02/13/18 20:15 03/15/18 20:14 Dextrose (Dextrose 50%) 50 ml STAT PRN IV Hypoglycemia 02/13/18 20:15 03/15/18 20:14 Heparin Sodium (Porcine) (Heparin 5000 units/ml) 5,000 units EVERY 12 HOURS SUBQ 02/13/18 21:00 03/15/18 20:59 02/15/18 08:11 Levothyroxine Sodium (Synthroid) 150 mcg Q24H ORAL 02/14/18 06:30 03/16/18 06:29 02/15/18 06:23 Meclizine HCl (Antivert) 25 mg Q6H PRN ORAL for dizziness 02/13/18 20:15 03/15/18 20:14 02/15/18 06:24 Ondansetron HCl (Zofran) 4 mg Q6H PRN IVP Nausea & Vomiting 02/13/18 20:15 03/15/18 20:14 Zolpidem Tartrate (Ambien) 5 mg DAILYPRN PRN ORAL Insomnia 02/13/18 20:15 02/20/18 20:14 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 PLAN OF CARE telemetry floor serial troponin negative ECG and tele no acute ischemic changes, pt was r/out for acute [place] tele no significant arrhythmias 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 Echocardiogram with an pEF 55% and RVSP of 40 c/w mild pulmonary hypertension O2 HHN prn Orthostatic vital revealed no evidence of orthostatic blood pressure changes, but heart rate increased with standing by 15 BP management with current regimen Neuro consult pending MRI of the brain and Carotid Duplex pending MRI L spine with evidence of moderate to severe chronic degenerative disease of lumbar spine pain management renal ultrasound no hydronephrosis BP management with CCB, BB and diuretic , renal parameters stable continue aspirin and statin check lipid panel check TSH, for now continue current dose of Synthroid DVT prophylaxis fall precautions Meclizine prn PT eval for safe ambulation case discussed and evaluated by supervising physician Berta Oliver NP Feb 15, 2018 12:09
--- NOTE | 2018-02-15 13:13 | Cardiac Electrophysiology PN ---
Assessment/Plan Assessment/Plan 1. Episodes of bradycardia. The patient is on low-dose Coreg and these episodes are transient. Will discontinue Coreg as still gets bradycardic. Echo EF 55%. 2. History of hypertension. On Norvasc 10 mg daily. 3. Hyperlipidemia. On Lipitor. 4. Hypothyroidism. On Synthroid. 5. Vertigo. On Antivert. Carotid duplex and MRI of brain is pending. FU with RN Subjective Subjective Still dizzy. No CP or SOB. Objective Last 24 Hour Vital Signs Date Time Temp Pulse Resp B/P (MAP) Pulse Ox O2 Delivery O2 Flow Rate FiO2 02/15/18 12:00 72 02/15/18 12:00 97.3 72 18 151/88 (109) 98 97.3 02/15/18 09:00 73 73 87 02/15/18 09:00 Room Air 02/15/18 08:07 73 138/72 02/15/18 08:06 73 138/72 02/15/18 08:00 46 02/15/18 08:00 98.0 73 18 138/72 (94) 98 98.0 02/15/18 04:00 97.7 62 20 129/78 (95) 100 97.7 02/15/18 04:00 55 02/15/18 00:00 70 02/15/18 00:00 97.9 70 18 120/77 (91) 97 97.9 02/14/18 21:00 Room Air 02/14/18 20:32 73 167/84 02/14/18 20:00 98.2 76 20 167/84 (111) 97 98.2 02/14/18 20:00 84 02/14/18 16:00 70 02/14/18 16:00 97.0 63 20 132/76 (94) 97 97.0 Intake and Output 02/14/18 02/15/18 19:00 07:00 Intake Total 840 ml 100 ml Balance 840 ml 100 ml Intake Oral 840 ml 100 ml # Voids 5 # Bowel Movements 3 Laboratory Tests Test 02/15/18 05:05 Troponin I 0.001 ng/mL (0.000-0.056) Objective HEAD AND NECK: Showed no JVD. LUNGS: Clear. CARDIOVASCULAR: Regular S1 and S2 with no gallop or murmur. ABDOMEN: Soft. EXTREMITIES: No pitting edema. Ra Giordano MD Feb 15, 2018 13:13
--- NOTE | 2018-02-15 15:30 | Internal Med Progress Note ---
Subjective Date of Service: Feb 15, 2018 Physician Name Car Sifuentes Attending Physician Car Sifuentes MD Current Medications Medications (Trade) Dose Ordered Sig/Deric Route PRN Reason Start Time Stop Time Status Last Admin Dose Admin Acetaminophen (Tylenol) 650 mg Q4H PRN ORAL Mild Pain (Pain Scale 1-3) 02/13/18 20:15 03/15/18 20:14 Acetaminophen (Tylenol) 650 mg Q4H PRN ORAL fever 02/13/18 20:15 03/15/18 20:14 Amlodipine Besylate (Norvasc) 10 mg DAILY ORAL 02/14/18 09:00 03/16/18 08:59 02/15/18 08:06 Aspirin (Ecotrin) 81 mg DAILY ORAL 02/14/18 09:00 03/16/18 08:59 02/15/18 08:07 Atorvastatin Calcium (Lipitor) 20 mg DAILY ORAL 02/14/18 09:00 03/16/18 08:59 02/15/18 08:07 Chlorthalidone (Chlorthalidone) 25 mg DAILY ORAL 02/14/18 09:00 03/16/18 08:59 02/15/18 08:07 Dextrose (Dextrose 50%) 25 ml STAT PRN IV Hypoglycemia 02/13/18 20:15 03/15/18 20:14 Dextrose (Dextrose 50%) 50 ml STAT PRN IV Hypoglycemia 02/13/18 20:15 03/15/18 20:14 Heparin Sodium (Porcine) (Heparin 5000 units/ml) 5,000 units EVERY 12 HOURS SUBQ 02/13/18 21:00 03/15/18 20:59 02/15/18 08:11 Levothyroxine Sodium (Synthroid) 150 mcg Q24H ORAL 02/14/18 06:30 03/16/18 06:29 02/15/18 06:23 Lisinopril (Zestril) 10 mg DAILY ORAL 02/16/18 09:00 03/18/18 08:59 Meclizine HCl (Antivert) 25 mg Q6H PRN ORAL for dizziness 02/13/18 20:15 03/15/18 20:14 02/15/18 06:24 Ondansetron HCl (Zofran) 4 mg Q6H PRN IVP Nausea & Vomiting 02/13/18 20:15 03/15/18 20:14 Zolpidem Tartrate (Ambien) 5 mg DAILYPRN PRN ORAL Insomnia 02/13/18 20:15 02/20/18 20:14 Allergies: Coded Allergies: No Known Allergies (Unverified , 07/06/12) ROS Limited/Unobtainable: No Constitutional: Reports: no symptoms HEENT: Reports: no symptoms Cardiovascular: Reports: no symptoms Respiratory: Reports: no symptoms Gastrointestinal/Abdominal: Reports: no symptoms Genitourinary: Reports: no symptoms Neurologic/Psychiatric: Reports: no symptoms Subjective 77 YO F admitted with vertigo. Now pauses on tele. Cover for Int Med-Dr Vela. Await MRI brain and carotid duplex doppler Objective Last Vital Signs Date Time Temp Pulse Resp B/P (MAP) Pulse Ox O2 Delivery O2 Flow Rate FiO2 02/15/18 12:00 72 02/15/18 12:00 97.3 18 151/88 (109) 98 97.3 02/15/18 09:00 Room Air Laboratory Tests Test 02/15/18 05:05 Troponin I 0.001 ng/mL (0.000-0.056) Intake and Output 02/14/18 02/15/18 19:00 07:00 Intake Total 840 ml 100 ml Balance 840 ml 100 ml Intake Oral 840 ml 100 ml # Voids 5 # Bowel Movements 3 Objective General Appearance: WD/WN, no apparent distress, alert EENT: PERRL/EOMI, normal ENT inspection Neck: non-tender, normal alignment, supple, normal inspection Cardiovascular: normal peripheral pulses, normal rate, regular rhythm, no gallop/murmur, no JVD Respiratory/Chest: chest wall non-tender, lungs clear, normal breath sounds, no respiratory distress, no accessory muscle use Abdomen: normal bowel sounds, non tender, soft, no organomegaly, no mass Extremities: normal range of motion, non-tender 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 6 sec pause on tele-see cardiology note. Await MRI brain and carotid duplex doppler. await echocardiogram (5) Hypertension Assessment & Plan: Continue amlodipine and clorthalidone Status: not improved Car Sifunetes MD Feb 15, 2018 15:30
[2018-02-15 16:00] VITALS: BP 132/74
[2018-02-15 20:00] VITALS: BP 126/73
[2018-02-16] VITALS (7 sets, daily range): BP systolic 121–150; BP diastolic 71–93
[2018-02-16 06:15] LABS: BASOPHILS % (AUTO) 0.7 % (0.0-2.0); EOSINOPHILS % (AUTO) 3.3 % (0.0-3.0); HEMATOCRIT 42.6 % (37.0-47.0); HEMOGLOBIN 13.5 G/DL (12.0-16.0); LYMPHOCYTES % (AUTO) 19.9 % (20.0-45.0); MEAN CORPUSCULAR VOLUME 71 FL (80-99); MONOCYTES % (AUTO) 10.5 % (1.0-10.0); NEUTROPHILS % (AUTO) 65.6 % (45.0-75.0); PLATELET COUNT 215 K/UL (150-450); RED BLOOD COUNT 5.97 M/UL (4.20-5.40); WHITE BLOOD COUNT 5.4 K/UL (4.8-10.8)
[2018-02-16 06:23] LABS: ANION GAP 5 mmol/L (5-15); BLOOD UREA NITROGEN 17 mg/dL (7-18); CALCIUM 8.9 MG/DL (8.5-10.1); CARBON DIOXIDE 29 MMOL/L (21-32); CHLORIDE 105 MMOL/L (98-107); CREATININE 0.7 MG/DL (0.55-1.30); POTASSIUM 3.3 MMOL/L (3.5-5.1); SODIUM 139 MMOL/L (136-145)
[2018-02-16 06:44] LABS: CHOLESTEROL 160 MG/DL (< 200); HDL CHOLESTEROL 71 MG/DL (40-60); TRIGLYCERIDES 59 MG/DL (30-150)
--- NOTE | 2018-02-16 07:23 | Pulmonology Progress Note ---
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 Hypo K PLAN OF CARE telemetry floor start gentle IVF for 1 L serial troponin negative ECG and tele no acute ischemic changes, pt was r/out for acute [place] tele no significant arrhythmias was still with transient helga off BB as per cardio Cardio follows Echocardiogram with an pEF 55% and RVSP of 40 c/w mild pulmonary hypertension O2 HHN prn Orthostatic vital revealed no evidence of orthostatic blood pressure changes, but heart rate increased with standing by 15 ( on 2 separate episodes) BP management with current regimen Neuro consult pending MRI of the brain and Carotid Duplex pending MRI L spine with evidence of moderate to severe chronic degenerative disease of lumbar spine pain management renal ultrasound no hydronephrosis BP management with CCB, BB and diuretic , renal parameters stable continue aspirin and statin lipid panel and TSH WNL continue current dose of Synthroid DVT prophylaxis fall precautions Meclizine prn PT eval for safe ambulation replace K, check K and Mg in am case discussed and evaluated by supervising physician Subjective Allergies: Coded Allergies: No Known Allergies (Unverified , 07/06/12) Subjective still dizzy, room spinning ambulated with PT no cehast pain, no SOB, orthostatic VS revealed significant increase in HR upon standing K-3.3 Objective Last 24 Hour Vital Signs Date Time Temp Pulse Resp B/P (MAP) Pulse Ox O2 Delivery O2 Flow Rate FiO2 02/16/18 04:00 97.0 66 20 123/73 (90) 95 97.0 02/16/18 04:00 60 02/16/18 00:09 98.2 70 18 135/93 (107) 95 98.2 02/16/18 00:00 69 02/16/18 00:00 98.2 70 18 135/93 (107) 95 98.2 02/15/18 21:00 Room Air 02/15/18 21:00 70 72 86 02/15/18 20:00 67 02/15/18 20:00 98.2 69 20 126/73 (90) 94 98.2 02/15/18 16:00 70 02/15/18 16:00 97.7 63 18 132/74 (93) 96 97.7 02/15/18 12:00 72 02/15/18 12:00 97.3 72 18 151/88 (109) 98 97.3 02/15/18 09:00 73 73 87 02/15/18 09:00 Room Air 02/15/18 08:07 73 138/72 02/15/18 08:06 73 138/72 02/15/18 08:00 46 02/15/18 08:00 98.0 73 18 138/72 (94) 98 98.0 Intake and Output 02/15/18 02/16/18 19:00 07:00 Intake Total 890 ml Balance 890 ml Intake Oral 890 ml # Voids 5 2 Objective General Appearance: no apparent distress, alert - awake and oriented x 4 AA female Lines, tubes and drains: peripheral HEENT: normocephalic, atraumatic, anicteric, mucous membranes moist, PERRL Neck: non-tender, supple, normal inspection Respiratory/Chest: lungs clear, no respiratory distress, no accessory muscle use Cardiovascular/Chest: normal peripheral pulses, normal rate, regular rhythm, no JVD Abdomen: normal bowel sounds, non tender, soft Extremities: normal range of motion, non-tender, no calf tenderness, normal capillary refill Skin Exam: normal pigmentation, warm/dry Neurologic: no motor/sensory deficits, alert, oriented x 3, responsive Musculoskeletal: normal muscle bulk Laboratory Tests 02/16/18 05:40: White Blood Count 5.4, Red Blood Count 5.97H, Hemoglobin 13.5, Hematocrit 42.6, Mean Corpuscular Volume 71L, Mean Corpuscular Hemoglobin 22.7L, Mean Corpuscular Hemoglobin Concent 31.8L, Red Cell Distribution Width 13.0, Platelet Count 215, Mean Platelet Volume 7.9, Neutrophils (%) (Auto) 65.6, Lymphocytes (%) (Auto) 19.9L, Monocytes (%) (Auto) 10.5H, Eosinophils (%) (Auto ) 3.3H, Basophils (%) (Auto) 0.7, Sodium Level 139, Potassium Level 3.3L, Chloride Level 105, Carbon Dioxide Level 29, Anion Gap 5, Blood Urea Nitrogen 17 , Creatinine 0.7, Estimat Glomerular Filtration Rate , Glucose Level 113H, Calcium Level 8.9, Triglycerides Level 59, Cholesterol Level 160, LDL Cholesterol 82, HDL Cholesterol 71H, Cholesterol/HDL Ratio 2.3L, Thyroid Stimulating Hormone (TSH) 1.646 Current Medications Medications (Trade) Dose Ordered Sig/Deric Route PRN Reason Start Time Stop Time Status Last Admin Dose Admin Acetaminophen (Tylenol) 650 mg Q4H PRN ORAL Mild Pain (Pain Scale 1-3) 02/13/18 20:15 03/15/18 20:14 Acetaminophen (Tylenol) 650 mg Q4H PRN ORAL fever 02/13/18 20:15 03/15/18 20:14 Amlodipine Besylate (Norvasc) 10 mg DAILY ORAL 02/14/18 09:00 03/16/18 08:59 02/15/18 08:06 Aspirin (Ecotrin) 81 mg DAILY ORAL 02/14/18 09:00 03/16/18 08:59 02/15/18 08:07 Atorvastatin Calcium (Lipitor) 20 mg DAILY ORAL 02/14/18 09:00 03/16/18 08:59 02/15/18 08:07 Chlorthalidone (Chlorthalidone) 25 mg DAILY ORAL 02/14/18 09:00 03/16/18 08:59 02/15/18 08:07 Dextrose (Dextrose 50%) 25 ml STAT PRN IV Hypoglycemia 02/13/18 20:15 03/15/18 20:14 Dextrose (Dextrose 50%) 50 ml STAT PRN IV Hypoglycemia 02/13/18 20:15 03/15/18 20:14 Heparin Sodium (Porcine) (Heparin 5000 units/ml) 5,000 units EVERY 12 HOURS SUBQ 02/13/18 21:00 03/15/18 20:59 02/15/18 21:13 Levothyroxine Sodium (Synthroid) 150 mcg Q24H ORAL 02/14/18 06:30 03/16/18 06:29 02/16/18 05:55 Lisinopril (Zestril) 10 mg DAILY ORAL 02/16/18 09:00 03/18/18 08:59 Meclizine HCl (Antivert) 25 mg Q6H PRN ORAL for dizziness 02/13/18 20:15 03/15/18 20:14 02/15/18 15:35 Ondansetron HCl (Zofran) 4 mg Q6H PRN IVP Nausea & Vomiting 02/13/18 20:15 03/15/18 20:14 Zolpidem Tartrate (Ambien) 5 mg DAILYPRN PRN ORAL Insomnia 02/13/18 20:15 02/20/18 20:14 Berta Oliver NP Feb 16, 2018 07:23
[2018-02-16] MEDS: Meclizine 25mg tab ORAL PRN (08:29)
[2018-02-16] MEDS: Lisinopril 10mg tab ORAL SCH (08:29)
[2018-02-16] MEDS: Atorvastatin 20mg tab ORAL SCH (08:29)
[2018-02-16] MEDS: Aspirin EC 81mg tab ORAL SCH (08:30)
--- NOTE | 2018-02-16 08:35 | General Progress Note ---
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 Hypo K PLAN OF CARE telemetry floor serial troponin negative ECG and tele no acute ischemic changes, pt was r/out for acute [place] tele no significant arrhythmias transient helga off BB as per cardio MRI results are unremarkable for acute pathology Subjective Constitutional: Reports: no symptoms HEENT: Reports: no symptoms Cardiovascular: Reports: no symptoms Respiratory: Reports: no symptoms Allergies: Coded Allergies: No Known Allergies (Unverified , 07/06/12) Objective Last 24 Hour Vital Signs Date Time Temp Pulse Resp B/P (MAP) Pulse Ox O2 Delivery O2 Flow Rate FiO2 02/16/18 08:29 144/71 02/16/18 08:29 80 144/71 02/16/18 04:00 97.0 66 20 123/73 (90) 95 97.0 02/16/18 04:00 60 02/16/18 00:09 98.2 70 18 135/93 (107) 95 98.2 02/16/18 00:00 69 02/16/18 00:00 98.2 70 18 135/93 (107) 95 98.2 02/15/18 21:00 Room Air 02/15/18 21:00 70 72 86 02/15/18 20:00 67 02/15/18 20:00 98.2 69 20 126/73 (90) 94 98.2 02/15/18 16:00 70 02/15/18 16:00 97.7 63 18 132/74 (93) 96 97.7 02/15/18 12:00 72 02/15/18 12:00 97.3 72 18 151/88 (109) 98 97.3 02/15/18 09:00 73 73 87 02/15/18 09:00 Room Air Intake and Output 02/15/18 02/16/18 19:00 07:00 Intake Total 890 ml Balance 890 ml Intake Oral 890 ml # Voids 5 2 Laboratory Tests 02/16/18 05:40: White Blood Count 5.4, Red Blood Count 5.97H, Hemoglobin 13.5, Hematocrit 42.6, Mean Corpuscular Volume 71L, Mean Corpuscular Hemoglobin 22.7L, Mean Corpuscular Hemoglobin Concent 31.8L, Red Cell Distribution Width 13.0, Platelet Count 215, Mean Platelet Volume 7.9, Neutrophils (%) (Auto) 65.6, Lymphocytes (%) (Auto) 19.9L, Monocytes (%) (Auto) 10.5H, Eosinophils (%) (Auto ) 3.3H, Basophils (%) (Auto) 0.7, Sodium Level 139, Potassium Level 3.3L, Chloride Level 105, Carbon Dioxide Level 29, Anion Gap 5, Blood Urea Nitrogen 17 , Creatinine 0.7, Estimat Glomerular Filtration Rate , Glucose Level 113H, Calcium Level 8.9, Triglycerides Level 59, Cholesterol Level 160, LDL Cholesterol 82, HDL Cholesterol 71H, Cholesterol/HDL Ratio 2.3L, Thyroid Stimulating Hormone (TSH) 1.646 Height (Feet): 5 Height (Inches): 4.00 Weight (Pounds): 240 General Appearance: no apparent distress EENT: PERRL/EOMI Neck: non-tender Cardiovascular: normal rate Respiratory/Chest: lungs clear Abdomen: soft Extremities: non-tender 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
[2018-02-16] MEDS: Heparin 5000 units/ml inj SUBQ SCH ×2 (08:37→21:00)
--- NOTE | 2018-02-16 14:25 | Cardiac Electrophysiology PN ---
Assessment/Plan Assessment/Plan 1. Episodes of bradycardia. Better off Coreg. Echo EF 55%. 2. History of hypertension. On Norvasc 10 mg daily and Lisinopril 10 daily. 3. Hyperlipidemia. On Lipitor. 4. Hypothyroidism. On Synthroid. 5. Vertigo. On Antivert. Carotid duplex and MRI of brain is pending. 6. Hypokalemia, replaced DW RN Subjective Subjective Still dizzy. No CP or SOB or bradycardia. Objective Last 24 Hour Vital Signs Date Time Temp Pulse Resp B/P (MAP) Pulse Ox O2 Delivery O2 Flow Rate FiO2 02/16/18 12:00 66 02/16/18 12:00 97.9 69 20 133/86 (102) 97 97.9 02/16/18 09:00 Room Air 02/16/18 09:00 65 71 88 02/16/18 08:29 144/71 02/16/18 08:29 80 144/71 02/16/18 08:00 98.4 65 20 144/71 (95) 97 98.4 02/16/18 08:00 65 02/16/18 04:00 97.0 66 20 123/73 (90) 95 97.0 02/16/18 04:00 60 02/16/18 00:09 98.2 70 18 135/93 (107) 95 98.2 02/16/18 00:00 69 02/16/18 00:00 98.2 70 18 135/93 (107) 95 98.2 02/15/18 21:00 Room Air 02/15/18 21:00 70 72 86 02/15/18 20:00 67 02/15/18 20:00 98.2 69 20 126/73 (90) 94 98.2 02/15/18 16:00 70 02/15/18 16:00 97.7 63 18 132/74 (93) 96 97.7 Intake and Output 02/15/18 02/16/18 19:00 07:00 Intake Total 890 ml Balance 890 ml Intake Oral 890 ml # Voids 5 2 Laboratory Tests Test 02/16/18 05:40 White Blood Count 5.4 K/UL (4.8-10.8) Red Blood Count 5.97 M/UL (4.20-5.40) H Hemoglobin 13.5 G/DL (12.0-16.0) Hematocrit 42.6 % (37.0-47.0) Mean Corpuscular Volume 71 FL (80-99) L Mean Corpuscular Hemoglobin 22.7 PG (27.0-31.0) L Mean Corpuscular Hemoglobin Concent 31.8 G/DL (32.0-36.0) L Red Cell Distribution Width 13.0 % (11.6-14.8) Platelet Count 215 K/UL (150-450) Mean Platelet Volume 7.9 FL (6.5-10.1) Neutrophils (%) (Auto) 65.6 % (45.0-75.0) Lymphocytes (%) (Auto) 19.9 % (20.0-45.0) L Monocytes (%) (Auto) 10.5 % (1.0-10.0) H Eosinophils (%) (Auto) 3.3 % (0.0-3.0) H Basophils (%) (Auto) 0.7 % (0.0-2.0) Sodium Level 139 MMOL/L (136-145) Potassium Level 3.3 MMOL/L (3.5-5.1) L Chloride Level 105 MMOL/L (98-107) Carbon Dioxide Level 29 MMOL/L (21-32) Anion Gap 5 mmol/L (5-15) Blood Urea Nitrogen 17 mg/dL (7-18) Creatinine 0.7 MG/DL (0.55-1.30) Estimat Glomerular Filtration Rate mL/min (>60) Glucose Level 113 MG/DL (74-106) H Calcium Level 8.9 MG/DL (8.5-10.1) Triglycerides Level 59 MG/DL (30-150) Cholesterol Level 160 MG/DL (< 200) LDL Cholesterol 82 mg/dL (<100) HDL Cholesterol 71 MG/DL (40-60) H Cholesterol/HDL Ratio 2.3 (3.3-4.4) L Thyroid Stimulating Hormone (TSH) 1.646 uiU/mL (0.358-3.740) Objective HEAD AND NECK: Showed no JVD. LUNGS: Clear. CARDIOVASCULAR: Regular S1 and S2 with no gallop or murmur. ABDOMEN: Soft. EXTREMITIES: No pitting edema. Ra Giordano MD Feb 16, 2018 14:25
[2018-02-17] VITALS: BP 134/82
[2018-02-17 04:00] VITALS: BP 129/63
[2018-02-17 06:25] LABS: BASOPHILS % (AUTO) 0.9 % (0.0-2.0); EOSINOPHILS % (AUTO) 3.4 % (0.0-3.0); HEMATOCRIT 41.3 % (37.0-47.0); LYMPHOCYTES % (AUTO) 20.3 % (20.0-45.0); MEAN CORPUSCULAR VOLUME 71 FL (80-99); MONOCYTES % (AUTO) 11.8 % (1.0-10.0); NEUTROPHILS % (AUTO) 63.5 % (45.0-75.0); PLATELET COUNT 196 K/UL (150-450); RED BLOOD COUNT 5.79 M/UL (4.20-5.40); RED CELL DISTRIBUTION WIDTH 13.1 % (11.6-14.8); WHITE BLOOD COUNT 4.9 K/UL (4.8-10.8)
[2018-02-17 07:42] LABS: ANION GAP 5 mmol/L (5-15); BLOOD UREA NITROGEN 12 mg/dL (7-18); CALCIUM 8.9 MG/DL (8.5-10.1); CARBON DIOXIDE 29 MMOL/L (21-32); CHLORIDE 106 MMOL/L (98-107); CREATININE 0.6 MG/DL (0.55-1.30); POTASSIUM 3.7 MMOL/L (3.5-5.1); SODIUM 140 MMOL/L (136-145)
[2018-02-17 08:00] VITALS: BP 123/70
[2018-02-17] MEDS: Aspirin EC 81mg tab ORAL SCH (08:40)
[2018-02-17] MEDS: Atorvastatin 20mg tab ORAL SCH (08:40)
[2018-02-17] MEDS: Lisinopril 10mg tab ORAL SCH (08:41)
[2018-02-17] MEDS: Heparin 5000 units/ml inj SUBQ SCH ×2 (08:42→20:30)
--- NOTE | 2018-02-17 10:34 | Cardiac Electrophysiology PN ---
Assessment/Plan Assessment/Plan 1. Episodes of bradycardia. Resolved off Coreg. Echo EF 55%.HR 60s now 2. Hypertension. On Norvasc 10 mg daily and Lisinopril 10 daily. 3. Hyperlipidemia. On Lipitor. 4. Hypothyroidism. On Synthroid. 5. Vertigo. On Antivert. Carotid duplex and MRI of brain is pending. 6. Hypokalemia, replaced DW RN Subjective Subjective Less dizzy. No CP or SOB . Remained in SR with no arrhythmias. Objective Last 24 Hour Vital Signs Date Time Temp Pulse Resp B/P (MAP) Pulse Ox O2 Delivery O2 Flow Rate FiO2 02/17/18 08:41 123/70 02/17/18 08:41 69 123/70 02/17/18 08:00 Room Air 02/17/18 08:00 96.9 69 18 123/70 (87) 98 96.9 02/17/18 07:40 72 02/17/18 04:00 97.3 61 20 129/63 (85) 96 97.3 02/17/18 04:00 57 02/17/18 00:00 97.5 62 20 134/82 (99) 97 97.5 02/17/18 00:00 60 02/16/18 21:00 Room Air 02/16/18 21:00 77 70 89 02/16/18 20:00 97.7 77 20 150/72 (98) 97 97.7 02/16/18 20:00 76 02/16/18 16:00 74 02/16/18 16:00 97.7 67 18 121/73 (89) 96 97.7 02/16/18 12:00 66 02/16/18 12:00 97.9 69 20 133/86 (102) 97 97.9 Intake and Output 02/16/18 02/17/18 19:00 07:00 Intake Total 1010 ml 516 ml Balance 1010 ml 516 ml Intake Oral 560 ml IV Total 450 ml 516 ml # Voids 4 # Bowel Movements 1 Laboratory Tests Test 02/17/18 06:00 White Blood Count 4.9 K/UL (4.8-10.8) Red Blood Count 5.79 M/UL (4.20-5.40) H Hemoglobin 13.0 G/DL (12.0-16.0) Hematocrit 41.3 % (37.0-47.0) Mean Corpuscular Volume 71 FL (80-99) L Mean Corpuscular Hemoglobin 22.5 PG (27.0-31.0) L Mean Corpuscular Hemoglobin Concent 31.5 G/DL (32.0-36.0) L Red Cell Distribution Width 13.1 % (11.6-14.8) Platelet Count 196 K/UL (150-450) Mean Platelet Volume 8.1 FL (6.5-10.1) Neutrophils (%) (Auto) 63.5 % (45.0-75.0) Lymphocytes (%) (Auto) 20.3 % (20.0-45.0) Monocytes (%) (Auto) 11.8 % (1.0-10.0) H Eosinophils (%) (Auto) 3.4 % (0.0-3.0) H Basophils (%) (Auto) 0.9 % (0.0-2.0) Sodium Level 140 MMOL/L (136-145) Potassium Level 3.7 MMOL/L (3.5-5.1) Chloride Level 106 MMOL/L (98-107) Carbon Dioxide Level 29 MMOL/L (21-32) Anion Gap 5 mmol/L (5-15) Blood Urea Nitrogen 12 mg/dL (7-18) Creatinine 0.6 MG/DL (0.55-1.30) Estimat Glomerular Filtration Rate mL/min (>60) Glucose Level 103 MG/DL (74-106) Calcium Level 8.9 MG/DL (8.5-10.1) Magnesium Level 1.7 MG/DL (1.8-2.4) L Objective HEAD AND NECK: No JVD. LUNGS: Clear. CARDIOVASCULAR: Regular S1 and S2 with no gallop or murmur. ABDOMEN: Soft. EXTREMITIES: No pitting edema. Ra Giordano MD Feb 17, 2018 10:34
[2018-02-17 12:00] VITALS: BP 148/90
--- NOTE | 2018-02-17 12:47 | General Progress Note ---
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 significantly reported improvement Allergies: Coded Allergies: No Known Allergies (Unverified , 07/06/12) Objective Last 24 Hour Vital Signs Date Time Temp Pulse Resp B/P (MAP) Pulse Ox O2 Delivery O2 Flow Rate FiO2 02/17/18 08:41 123/70 02/17/18 08:41 69 123/70 02/17/18 08:00 Room Air 02/17/18 08:00 96.9 69 18 123/70 (87) 98 96.9 02/17/18 07:40 72 02/17/18 04:00 97.3 61 20 129/63 (85) 96 97.3 02/17/18 04:00 57 02/17/18 00:00 97.5 62 20 134/82 (99) 97 97.5 02/17/18 00:00 60 02/16/18 21:00 Room Air 02/16/18 21:00 77 70 89 02/16/18 20:00 97.7 77 20 150/72 (98) 97 97.7 02/16/18 20:00 76 02/16/18 16:00 74 02/16/18 16:00 97.7 67 18 121/73 (89) 96 97.7 Intake and Output 02/16/18 02/17/18 19:00 07:00 Intake Total 1010 ml 516 ml Balance 1010 ml 516 ml Intake Oral 560 ml IV Total 450 ml 516 ml # Voids 4 # Bowel Movements 1 Laboratory Tests 02/17/18 06:00: White Blood Count 4.9, Red Blood Count 5.79H, Hemoglobin 13.0, Hematocrit 41.3, Mean Corpuscular Volume 71L, Mean Corpuscular Hemoglobin 22.5L, Mean Corpuscular Hemoglobin Concent 31.5L, Red Cell Distribution Width 13.1, Platelet Count 196, Mean Platelet Volume 8.1, Neutrophils (%) (Auto) 63.5, Lymphocytes (%) (Auto) 20.3, Monocytes (%) (Auto) 11.8H, Eosinophils (%) (Auto) 3.4H, Basophils (%) (Auto) 0.9, Sodium Level 140, Potassium Level 3.7, Chloride Level 106, Carbon Dioxide Level 29, Anion Gap 5, Blood Urea Nitrogen 12, Creatinine 0.6, Estimat Glomerular Filtration Rate , Glucose Level 103, Calcium Level 8.9, Magnesium Level 1.7L Height (Feet): 5 Height (Inches): 4.00 Weight (Pounds): 240 General Appearance: WD/WN EENT: PERRL/EOMI Neck: supple Cardiovascular: normal rate Respiratory/Chest: lungs clear Abdomen: soft Extremities: non-tender 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
--- NOTE | 2018-02-17 14:52 | Consultation ---
History of Present Illness General Date patient seen: Feb 17, 2018 Chief Complaint: Dizziness Referring physician: Dr ABAD Reason for Consultation: VERTIGO Present Illness HPI 77-year-old female, with hx of obesity, anxiety and pain who presents with chief complaint of dizziness. The pt pw anxiety and insomnia the pt stated that she is not able to sleep at night. has multiple stressors regrading her son and her health. Allergies: Coded Allergies: No Known Allergies (Unverified , 07/06/12) Medication History Scheduled Amlodipine Besylate* (Amlodipine Besylate*), 10 MG ORAL DAILY, (Reported) Aspirin* (Aspir 81*), 81 MG ORAL DAILY, (Reported) Atorvastatin Calcium* (Atorvastatin Calcium*), 20 MG ORAL DAILY, (Reported) Calcium Carbonate/Vitamin D3 (Oysco 500+D Tablet), 1 EACH PO BID, (Reported) Carvedilol* (Carvedilol*), 3.125 MG ORAL EVERY 12 HOURS, (Reported) Chlorthalidone* (Chlorthalidone*), 25 MG ORAL DAILY, (Reported) Levothyroxine Sodium* (Levothyroxine Sodium*), 150 MCG ORAL DAILY, (Reported) [place]-3 Fatty Acids/Fish Oil ([place] 3 Fish Oil Softgel), 1 EACH PO DAILY, ( Reported) Vitamin D (Vitamin D3), 1,000 UNITS ORAL DAILY, (Reported) Patient History Limited by: medical condition History Provided By: Patient, Medical Record, PMD Healthcare decision maker Resuscitation status Advanced Directive on File Past Medical/Surgical History Past Medical/Surgical History: (1) Head, face & neck injury (2) Urinary tract infection (3) Upper respiratory infection (4) Diabetes (5) Purulent bronchitis (6) hypertension (7) Hypercholesteremia (8) Hypothyroidism (9) Vertigo (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, lumbar, with myelopathy (11) Hypertension (12) Dizziness (13) Back pain (14) Weakness Review of Systems Psychiatric: Reports: prior hx, anxiety Physical Exam General Appearance: no apparent distress, alert Neurologic: oriented x 3, responsive, depressed affect Last 24 Hour Vital Signs Date Time Temp Pulse Resp B/P (MAP) Pulse Ox O2 Delivery O2 Flow Rate FiO2 02/17/18 12:00 97.9 78 18 148/90 (109) 98 97.9 02/17/18 11:00 83 78 82 02/17/18 08:41 123/70 02/17/18 08:41 69 123/70 02/17/18 08:00 Room Air 02/17/18 08:00 96.9 69 18 123/70 (87) 98 96.9 02/17/18 07:40 72 02/17/18 04:00 97.3 61 20 129/63 (85) 96 97.3 02/17/18 04:00 57 02/17/18 00:00 97.5 62 20 134/82 (99) 97 97.5 02/17/18 00:00 60 02/16/18 21:00 Room Air 02/16/18 21:00 77 70 89 02/16/18 20:00 97.7 77 20 150/72 (98) 97 97.7 02/16/18 20:00 76 02/16/18 16:00 74 02/16/18 16:00 97.7 67 18 121/73 (89) 96 97.7 Intake and Output 02/16/18 02/17/18 19:00 07:00 Intake Total 1010 ml 516 ml Balance 1010 ml 516 ml Intake Oral 560 ml IV Total 450 ml 516 ml # Voids 4 # Bowel Movements 1 Laboratory Tests Test 02/17/18 06:00 White Blood Count 4.9 K/UL (4.8-10.8) Red Blood Count 5.79 M/UL (4.20-5.40) H Hemoglobin 13.0 G/DL (12.0-16.0) Hematocrit 41.3 % (37.0-47.0) Mean Corpuscular Volume 71 FL (80-99) L Mean Corpuscular Hemoglobin 22.5 PG (27.0-31.0) L Mean Corpuscular Hemoglobin Concent 31.5 G/DL (32.0-36.0) L Red Cell Distribution Width 13.1 % (11.6-14.8) Platelet Count 196 K/UL (150-450) Mean Platelet Volume 8.1 FL (6.5-10.1) Neutrophils (%) (Auto) 63.5 % (45.0-75.0) Lymphocytes (%) (Auto) 20.3 % (20.0-45.0) Monocytes (%) (Auto) 11.8 % (1.0-10.0) H Eosinophils (%) (Auto) 3.4 % (0.0-3.0) H Basophils (%) (Auto) 0.9 % (0.0-2.0) Sodium Level 140 MMOL/L (136-145) Potassium Level 3.7 MMOL/L (3.5-5.1) Chloride Level 106 MMOL/L (98-107) Carbon Dioxide Level 29 MMOL/L (21-32) Anion Gap 5 mmol/L (5-15) Blood Urea Nitrogen 12 mg/dL (7-18) Creatinine 0.6 MG/DL (0.55-1.30) Estimat Glomerular Filtration Rate mL/min (>60) Glucose Level 103 MG/DL (74-106) Calcium Level 8.9 MG/DL (8.5-10.1) Magnesium Level 1.7 MG/DL (1.8-2.4) L Height (Feet): 5 Height (Inches): 4.00 Weight (Pounds): 240 Medications Current Medications Medications (Trade) Dose Ordered Sig/Deric Route PRN Reason Start Time Stop Time Status Last Admin Dose Admin Acetaminophen (Tylenol) 650 mg Q4H PRN ORAL Mild Pain (Pain Scale 1-3) 02/13/18 20:15 03/15/18 20:14 Acetaminophen (Tylenol) 650 mg Q4H PRN ORAL fever 02/13/18 20:15 03/15/18 20:14 Amlodipine Besylate (Norvasc) 10 mg DAILY ORAL 02/14/18 09:00 03/16/18 08:59 02/17/18 08:41 Aspirin (Ecotrin) 81 mg DAILY ORAL 02/14/18 09:00 03/16/18 08:59 02/17/18 08:40 Atorvastatin Calcium (Lipitor) 20 mg DAILY ORAL 02/14/18 09:00 03/16/18 08:59 02/17/18 08:40 Chlorthalidone (Chlorthalidone) 25 mg DAILY ORAL 02/14/18 09:00 03/16/18 08:59 02/17/18 08:40 Dextrose (Dextrose 50%) 25 ml STAT PRN IV Hypoglycemia 02/13/18 20:15 03/15/18 20:14 Dextrose (Dextrose 50%) 50 ml STAT PRN IV Hypoglycemia 02/13/18 20:15 03/15/18 20:14 Heparin Sodium (Porcine) (Heparin 5000 units/ml) 5,000 units EVERY 12 HOURS SUBQ 02/13/18 21:00 03/15/18 20:59 02/17/18 08:42 Levothyroxine Sodium (Synthroid) 150 mcg Q24H ORAL 02/14/18 06:30 03/16/18 06:29 02/17/18 05:41 Lisinopril (Zestril) 10 mg DAILY ORAL 02/16/18 09:00 03/18/18 08:59 02/17/18 08:41 Meclizine HCl (Antivert) 25 mg Q6H PRN ORAL for dizziness 02/13/18 20:15 03/15/18 20:14 02/16/18 08:29 Ondansetron HCl (Zofran) 4 mg Q6H PRN IVP Nausea & Vomiting 02/13/18 20:15 03/15/18 20:14 Sodium Chloride 1,000 ml @ 50 mls/hr Q20H IV 02/16/18 10:00 03/18/18 09:59 02/17/18 05:41 Zolpidem Tartrate (Ambien) 5 mg DAILYPRN PRN ORAL Insomnia 02/13/18 20:15 02/20/18 20:14 Assessment/Plan Status: stable Assessment/Plan Anxiety d/o Insomnia -Remeron 7.5mg qhs prn -provided Nicholas Nick MD Feb 17, 2018 14:52
[2018-02-17] MEDS ORDERED: Meclizine 25mg tab ORAL PRN (15:15)
--- NOTE | 2018-02-17 15:20 | Diagnostic Imaging Report ---
Indication: Vertigo and dizziness Technique: sagittal T1 fast spin echo, axial T1 FLAIR, axial and sagittal T2 FLAIR PROPELLER, axial T2 FS PROPELLER, axial T2* GRE, axial diffusion weighted images. ADC and exponential ADC maps generated Comparison: none Findings: No abnormal areas of restricted diffusion to suggest acute infarction. No acute hemorrhage or edema. No mass effect nor midline shift. There is minimal age-related prominence of the ventricles and extra-axial CSF spaces. Scattered areas of T2 hyperintensity are seen throughout the periventricular and deep white matter, most likely reflect chronic ischemic changes. There is evidence of prior cataract surgery on the left. The included sinuses are clear. The mastoids are clear. Impression: Chronic and age-related changes, as described Negative for acute intracranial bleed, infarct, or mass effect
[2018-02-17 16:00] VITALS: BP 139/86
--- NOTE | 2018-02-17 17:07 | Cardiology Report ---
APPROVED REPORT EXAM: Two-dimensional and M-mode echocardiogram with Doppler and color Doppler. INDICATION Syncope M-Mode DIMENSIONS IVSd1.4 (0.7-1.1cm)Left Atrium (MM)4.1 (1.6-4.0cm) LVDd4.0 (3.5-5.6cm)Aortic Root3.2 (2.0-3.7cm) PWd1.2 (0.7-1.1cm)Aortic Cusp Exc.2.0 (1.5-2.0cm) LVDs2.7 (2.5-4.0cm) PWs1.7 cm Technically difficult study due to patient body habitus. Study quality precludes accurate assessment of regional wall motion. Normal left ventricular chamber size, systolic function and wall motion. Left ventricular ejection fraction estimated to be 55 %. Mild left ventricular hypertrophy. No evidence of pericardial effusion. Mild bi-atrial enlargement. Right ventricular chamber sizes is within normal limits. Focal aortic valve sclerosis with adequate cusp excursion. Mildly thickened mitral valve leaflets with normal excursion. Mild mitral annulus and aortic root calcification. Pulmonic valve not well visualized. Normal tricuspid valve structure. IVC is normal in size with physiological collapse. A color flow and spectral Doppler study was performed and revealed: Moderate aortic insufficiency. Mild mitral regurgitation. Mitral diastolic velocities suggest mild left ventricular diastolic dysfunction (Grade I). Mild to moderate tricuspid regurgitation. Tricuspid systolic velocities suggests peak right ventricular systolic pressure of 40 mmHg, consistent with mild pulmonary hypertension. Mild pulmonic regurgitation present.
--- NOTE | 2018-02-17 17:38 | Cardiology Report ---
APPROVED REPORT EKG Measurement Heart [id number] Sinus rhythm with premature atrial complexes with aberrant conduction Possible Left atrial enlargement Cannot rule out Anterior infarct, age undetermined Abnormal ECG
[2018-02-17] MEDS ORDERED: Zolpidem 5mg tab ORAL PRN (20:15)
[2018-02-17 20:20] VITALS: BP 122/71
[2018-02-18] VITALS: BP 135/77
[2018-02-18 04:34] VITALS: BP 121/73
[2018-02-18 08:00] VITALS: BP 110/71
[2018-02-18] MEDS: Heparin 5000 units/ml inj SUBQ SCH (08:11)
[2018-02-18] MEDS ORDERED: Aspirin EC 81mg tab ORAL SCH (09:00)
[2018-02-18] MEDS ORDERED: Lisinopril 10mg tab ORAL SCH (09:00)
[2018-02-18] MEDS ORDERED: Atorvastatin 20mg tab ORAL SCH (09:00)
[2018-02-18] MEDS ORDERED: LISINOPRIL10 MG ORAL (09:13)
--- NOTE | 2018-02-18 09:19 | General Progress Note ---
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 Hypo K PLAN OF CARE telemetry floor serial troponin negative ECG and tele no acute ischemic changes, pt was r/out for acute [place] tele no significant arrhythmias transient helga off BB as per cardio Brain MRI results are unremarkble DC home today with [facility] Subjective ROS Limited/Unobtainable: No Constitutional: Reports: malaise HEENT: Reports: other - episodes of vertigo Cardiovascular: Reports: no symptoms Allergies: Coded Allergies: No Known Allergies (Unverified , 07/06/12) Objective Last 24 Hour Vital Signs Date Time Temp Pulse Resp B/P (MAP) Pulse Ox O2 Delivery O2 Flow Rate FiO2 02/18/18 09:12 88 73 86 02/18/18 08:31 Room Air 02/18/18 08:08 65 110/73 02/18/18 08:06 110/71 02/18/18 08:00 97.4 73 19 110/71 (84) 96 97.4 02/18/18 04:34 97.3 65 18 121/73 (89) 97 97.3 02/18/18 00:00 97.6 67 19 135/77 (96) 96 97.6 02/17/18 21:57 77 73 72 02/17/18 21:00 Room Air 02/17/18 20:20 97.3 70 18 122/71 (88) 96 97.3 02/17/18 16:00 97.7 71 20 139/86 (103) 100 97.7 02/17/18 12:00 97.9 78 18 148/90 (109) 98 97.9 02/17/18 11:00 83 78 82 Intake and Output 02/17/18 02/18/18 19:00 07:00 Intake Total 730 ml 810 ml Balance 730 ml 810 ml Intake Oral 430 ml 360 ml IV Total 300 ml 450 ml # Voids 4 2 Height (Feet): 5 Height (Inches): 4.00 Weight (Pounds): 278 General Appearance: no apparent distress EENT: PERRL/EOMI Neck: supple Cardiovascular: normal rate Respiratory/Chest: lungs clear Abdomen: soft Extremities: other - episodes of Vertigo 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
[2018-02-18] MEDS ORDERED: MECLIZINE HCL25 MG ORAL (09:29)
[2018-02-18 11:46] VITALS: BP 118/80
--- NOTE | 2018-02-18 23:42 | General Progress Note ---
Assessment/Plan Assessment/Plan Anxiety d/o Insomnia -Remeron 7.5mg qhs prn -provided ro Subjective Date patient seen: Feb 18, 2018 Neurologic/Psychiatric: Reports: anxiety, depressed, emotional problems Allergies: Coded Allergies: No Known Allergies (Unverified , 07/06/12) Objective Last 24 Hour Vital Signs Date Time Temp Pulse Resp B/P (MAP) Pulse Ox O2 Delivery O2 Flow Rate FiO2 02/18/18 11:46 98.1 76 20 118/80 (93) 97 98.1 02/18/18 09:12 88 73 86 02/18/18 08:31 Room Air 02/18/18 08:08 65 110/73 02/18/18 08:06 110/71 02/18/18 08:00 97.4 73 19 110/71 (84) 96 97.4 02/18/18 04:34 97.3 65 18 121/73 (89) 97 97.3 02/18/18 00:00 97.6 67 19 135/77 (96) 96 97.6 Intake and Output 02/17/18 02/18/18 19:00 07:00 Intake Total 730 ml 810 ml Balance 730 ml 810 ml Intake Oral 430 ml 360 ml IV Total 300 ml 450 ml # Voids 4 2 Height (Feet): 5 Height (Inches): 4.00 Weight (Pounds): 278 General Appearance: no apparent distress, alert Nicholas Daly MD Feb 18, 2018 23:42
--- NOTE | 2018-02-19 15:10 | Discharge Summary ---
Discharge Summary Discharge Summary _ DATE OF ADMISSION: 02/13/2018 DATE OF DISCHARGE: 02/18/2018 CONSULTANTS: Dr. Nicholas Asif BRIEF HOSPITAL COURSE: Patient is a 77-year-old -[place]ish female, who presented with chief complaint of dizziness. History of present illness started a week prior to admission. She stated dizziness was worse when laying flat or with changes in head position to the left. She was unable to sleep laying flat. She felt " room spinning". She has medical history significant for hypertension and hypothyroidism. On evaluation at ED, blood pressure was elevated to 166/92. Blood work was stable. EKG was in normal sinus rhythm. Chest x-ray with no acute disease. She had a CT of the head that showed no acute intracranial bleed, mass effect or edema. MRI of the lumbar spine showed moderate to severe chronic degenerative changes. MRI of the pelvis with no acute findings. She was given meclizine. MRI of the brain showed chronic age-related changes, negative for acute intracranial bleed, infarct or mass effect. Carotid ultrasound with no significant plaques in the common carotid artery. There were irregular plaques into internal and external carotid artery. Vertebral arteries were patent without evidence of stenosis or steal. Patient had episodes of bradycardia. Patient is on low-dose Coreg. Bradycardia was transient. She was continued on aspirin and Lipitor. She was continued on Coreg and Norvasc. TSH was normal. She was given levothyroxine 150 g. Heart rate was monitored. She had an echocardiogram done that showed EF 55%. Troponins were negative. She had an episode of 6 second pause. Coreg was eventually discontinued. Heart rate improved. Patient had anxiety and insomnia, stated she was not able to sleep at night and had multiple stressors regarding her son and her health. She was given Remeron daily at bedtime. She was given PT. Symptoms improved. She was eventually discharged home. 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 I have been assigned to dictate discharge summary on this account, and I was not involved in the patient's management. Jamila Cooper NP Feb 19, 2018 15:10
--- NOTE | 2018-02-19 15:59 | Diagnostic Imaging Report ---
APPROVED REPORT CPT Code: 14446 Vascular Symptoms Dizziness and Vertigo Doppler Spectral Velocity Analysis RightLeft RIGHT SIDE: CCA - Imaging reveals no significant plaque in the common carotid artery. ICA arteries. The Doppler signal indicates the degree of stenosis is minimal (20%) in the internal carotid, and (10%) in the external carotid arteries. VERTEBRAL - The vertebral artery is patent, without evidence of stenosis or steal. LEFT SIDE: CCA - Imaging reveals no significant plaque in the common carotid artery. ICA arteries. The Doppler signal indicates the degree of stenosis is minimal (30%) in the internal carotid, and (10%) in the external carotid arteries. VERTEBRAL - The vertebral artery is patent, without evidence of stenosis or steal.
== END 2018-02-18 13:19 | disposition home health service (06) | DRG 149 ==
LOC: EMR 11:30 → 2E 12:41 → EDBEDREQ 12:48 → 2E 17:39 → 3E 02-17 14:58
DX: H81.10 Benign paroxysmal vertigo, unspecified ear (principal); M47.16 Other spondylosis with myelopathy, lumbar region; E03.9 Hypothyroidism, unspecified; E78.00 Pure hypercholesterolemia, unspecified; R00.1 Bradycardia, unspecified; I27.20 Pulmonary hypertension, unspecified; M51.36 Other intervertebral disc degeneration, lumbar region; E87.6 Hypokalemia; E83.42 Hypomagnesemia; F41.9 Anxiety disorder, unspecified; G47.00 Insomnia, unspecified; E86.0 Dehydration
CPT/HCPCS: 36415; 70450; 70551; 71045; 72148; 72195; 76770; 80048; 80053; 80061; 81003; 82550; 82553; 83690; 83735; 84443; 84484; 85025; 93005; 93306; 93880; 99285; J8499